=== PATIENT | female | born 1950 | race Asian ===

== ENCOUNTER 2017-05-23 09:03 | Emergency (ER) | payer MEDICARE, OTHER ==
[~2017-05-23] VITALS: Ht 157.5 cm; Wt 59.0 kg
[~2017-05-23 09:03] MED LIST: CANA1000R PR; FOLI-49 PO; FURO40TA4 PO; HYDR-3672 PO; LANS30CA PO; METO50TA16 PO; OMEP20CA16 PO; SEVE800T7 PO; SIMV20TA PO; SYN112 PO
[2017-05-23 09:05] VITALS: Ht 157.5 cm; Wt 59.0 kg
[2017-05-23] MEDS ORDERED: FEBU40TA PO (10:00)
[2017-05-23] MEDS ORDERED: FOLI1CAP PO (10:01)
[2017-05-23] MEDS ORDERED: ATOR20TA38 PO (10:01)
[2017-05-23] MEDS ORDERED: FER325 PO (10:01)
[2017-05-23] MEDS ORDERED: MONT10TA21 PO (10:02)
--- NOTE | 2017-05-23 11:19 | ERD ---
ER Documentation Chief Complaint Date/Time DATE: 05/23/17 TIME: 11:16 Chief Complaint nose bleed since 0600 HPI 66-year-old woman brought in by for bilateral epistaxis worse on the left compared to the right. She had no precipitating factors is seen she has had previous episodes. She has end-stage kidney disease and is due for hemodialysis tomorrow last dialysis was yesterday. She denies trauma, no fevers or chills, no headache or blurry vision, no dizziness, no loss of consciousness, no weakness in her arms or legs. ROS All systems reviewed and are negative except as per history of present illness. Medications Home Meds Active Scripts Folic Acid* (Folic Acid*) 1 Mg Tablet, 1 MG PO DAILY for 30 Days, TAB 1 Refill Prov:CONRAD BARSANYA Macias 07/29/16 Reported Medications Montelukast Sodium* (Singulair*) 10 Mg Tablet, 10 MG PO QHS, #30 TAB 05/23/17 Ferrous Sulfate* (Ferrous Sulfate*) 325 Mg Tabec, 325 MG PO TID, TAB 05/23/17 Atorvastatin Calcium* (Atorvastatin Calcium*) 20 Mg Tablet, 20 MG PO QHS, #30 TAB 05/23/17 Folic Acid/Vitamin B Comp W-C (Nephrocaps Capsule) 1 Mg Capsule, 1 MG PO DAILY, CAP 05/23/17 Febuxostat* (Uloric*) 40 Mg Tablet, 40 MG PO DAILY, TAB 05/23/17 Levothyroxine Sodium* (Levothyroxine Sodium*) 112 Mcg Tablet, 112 MCG PO BEFORE BREAKFAST, #30 TAB 08/03/16 Furosemide* (Furosemide*) 40 Mg Tablet, 40 MG PO DAILY, TAB 08/03/16 Omeprazole* (Omeprazole*) 20 Mg Capsule.dr, 20 MG PO AC BREAKFAST, #30 CAP 08/03/16 Discontinued Reported Medications Simvastatin* (Zocor*) 20 Mg Tablet, 20 MG PO QHS, #30 TAB 08/03/16 Metoprolol Succinate* (Toprol XL*) 50 Mg Tab.er.24h, 50 MG PO DAILY, #30 TAB 08/03/16 Hydralazine Hcl* (Hydralazine Hcl*) 50 Mg Tab, 50 MG PO Q8, #90 TAB HOLD SBP<110 08/03/16 Lansoprazole* (Lansoprazole*) 30 Mg Capsule.dr, 30 MG PO DAILY, CAP 08/03/16 Sevelamer Carbonate* (Renvela*) 800 Mg Tablet, 1.6 GM PO WITH MEALS, TAB 07/11/16 Discontinued Scripts Mesalamine* (Canasa*) 1,000 Mg Supp, 1000 MG FL HS for 30 Days, SUPP 1 Refill Prov:SUSAN BAR 07/29/16 Allergies Allergies: Coded Allergies: aspirin (Verified Allergy, Intermediate, 05/23/17) PMhx/Soc Gastritis, coronary artery disease, hypothyroidism, end-stage kidney disease hemodialysis dependent, hypertension History of Surgery: Yes (EGD and colonoscopy.) Anesthesia Reaction: No Hx Neurological Disorder: No Hx Respiratory Disorders: No Hx Cardiac Disorders: Yes (HTN) Hx Psychiatric Problems: No Hx Miscellaneous Medical Probl: Yes (BL subdural hematomas, choledocholithiasis , DIALYSIS ) Hx Alcohol Use: No Hx Substance Use: No Hx Tobacco Use: No Smoking Status: Never smoker FmHx Family History: No diabetes Physical Exam Vitals Vital Signs Date Time Temp Pulse Resp B/P Pulse Ox O2 Delivery O2 Flow Rate FiO2 05/23/17 09:05 97.5 60 18 164/73 100 Physical Exam GENERAL: Well-developed, well-nourished, well-hydrated, in no apparent distress , looks nontoxic in appearance HEENT: Moist mucous membranes, pink conjunctiva, no cervical spine tenderness or step-off deformities, no goiter, no jaundice or icterus, extraocular movements intact without pain. No submandibular induration, and no pharyngeal erythema. Positive epistaxis bilaterally worse on the left compared to the right. Nasal compressive dressing applied with improvement. NEURO: Alert and oriented 3, cranial nerves II through XII intact bilaterally, pupils equal round reactive to light, no focal deficits or facial asymmetry, sensation intact distally Strength 5/5 in upper and lower extremities bilaterally CARDIAC: Regular rate and rhythm, no murmurs rubs or gallops LUNGS: Clear bilaterally no wheezing crackles or stridor ABDOMEN: Soft nontender, no guarding, no rigidity, no rebound, no psoas sign no obturator sign. Normoactive bowel sounds SKIN: Warm and dry to touch, no abrasions, contusions, or hematomas, no lacerations, no ecchymosis, no target lesions, and without ulcers EXTREMITIES: No clubbing cyanosis or edema, calves are bilaterally symmetrical, no Homans sign, no popliteal cord sign. Distal pulses equal and bilateral PSYCH: Normal affect without agitation or irritability Results 24 hrs Current Medications Medications (Trade) Dose Ordered Sig/Jacque Route PRN Reason Start Time Stop Time Status Last Admin Dose Admin Clonidine (Catapres) 0.1 mg ONCE ONCE PO 05/23/17 10:30 05/23/17 10:31 DC 05/23/17 10:40 Procedures/MDM Despite compressive dressing patient had continued left naris epistaxis so intranasal balloon was inserted and insufflated with 6 cc of air. Epistaxis immediately resolved. For hypertension patient received clonidine 0.1 mg p.o. with improvement. Differential diagnoses considered, included but not limited to acute coronary syndrome, pulmonary embolism, aortic dissection, abdominal aortic aneurysm, sepsis, stroke, meningitis, encephalitis, pneumonia, appendicitis, cholecystitis , bowel obstruction, pyelonephritis, nephrolithiasis, cystitis, as well as metabolic, hematologic, and electrolyte abnormalities. As well as abscess, cellulitis, fractures, and dislocations. Patient feels much better at this time, and vital signs are normal, symptoms have improved. I did give strict instructions to return to the ED if symptoms continue or worsen, patient will otherwise follow-up with primary care physician. Patient understood instructions and agreed to plan. Disclaimer: Inadvertent spelling and grammatical errors are likely due to EHR/ dictation software use and do not reflect on the overall quality of patient care. Also, please note that the electronic time recorded on this note does not necessarily reflect the actual time of the patient encounter. Departure Diagnosis: Primary Impression: Hypertension Hypertension type: essential hypertension Qualified Code: I10 - Essential hypertension Additional Impressions: Epistaxis End stage renal disease on dialysis Condition: Good Patient Instructions: High Blood Pressure (Hypertension), Epistaxis (Adult) JONO DELANEY MD May 23, 2017 11:18
[2017-05-23 11:26] VITALS: BP 186/86; PULSE 74; RESP 18; TEMP 97.5
== END 2017-05-23 11:27 | disposition home or self-care (01) ==
LOC: E/R 09:03
DX: I12.0 Hypertensive chronic kidney disease with stage 5 chronic kidney disease or end stage renal disease (principal); N18.6 End stage renal disease; I25.10 Atherosclerotic heart disease of native coronary artery without angina pectoris; E03.9 Hypothyroidism, unspecified; Z99.2 Dependence on renal dialysis
CPT/HCPCS: 99283

== ENCOUNTER 2017-05-24 12:58 | Emergency (ER) | payer MEDICARE, OTHER ==
[~2017-05-24] VITALS: Wt 68.2 kg
[~2017-05-24 12:58] MED LIST changes: +ATOR20TA38 PO; -CANA1000R PR; +FEBU40TA PO; +FER325 PO; +FOLI1CAP PO; -HYDR-3672 PO; -LANS30CA PO; -METO50TA16 PO; +MONT10TA21 PO; -SEVE800T7 PO; -SIMV20TA PO
--- NOTE | 2017-05-24 13:53 | ERD ---
ER Documentation Chief Complaint Date/Time DATE: 05/24/17 TIME: 13:51 Chief Complaint hira rhinorockets bleeding through, seen here yest for same HPI This is a 66-year-old female with a history of end-stage renal disease on hemodialysis which she receives every Sunday and Sunday. Her manager winter is Jannie. The patient had just completed a full run of dialysis when she returned to the emergency department for reevaluation. Yesterday she had been seen and evaluated for bilateral anterior rhinorrhea. The patient had 2 nasal rocket placed. She indicates that the bleeding has resolved. She is requesting reevaluation and removal of the Rhino Rocket. She denies any dizziness. She has no chest pain or pressure that radiates to the neck arm back or jaw. She has had no fevers or shaking or chills. She denies the sensation of blood in the back of her throat. She denies any chest pain or pressure that radiates to the neck arm back or jaw. She denies any nausea or weakness. She denies any abdominal pain. ROS All systems reviewed and are negative except as per history of present illness. Medications Home Meds Active Scripts Folic Acid* (Folic Acid*) 1 Mg Tablet, 1 MG PO DAILY for 30 Days, TAB 1 Refill Prov:DIPIKASUSAN 07/29/16 Reported Medications Montelukast Sodium* (Singulair*) 10 Mg Tablet, 10 MG PO QHS, #30 TAB 05/23/17 Ferrous Sulfate* (Ferrous Sulfate*) 325 Mg Tabec, 325 MG PO TID, TAB 05/23/17 Atorvastatin Calcium* (Atorvastatin Calcium*) 20 Mg Tablet, 20 MG PO QHS, #30 TAB 05/23/17 Folic Acid/Vitamin B Comp W-C (Nephrocaps Capsule) 1 Mg Capsule, 1 MG PO DAILY, CAP 05/23/17 Febuxostat* (Uloric*) 40 Mg Tablet, 40 MG PO DAILY, TAB 05/23/17 Levothyroxine Sodium* (Levothyroxine Sodium*) 112 Mcg Tablet, 112 MCG PO BEFORE BREAKFAST, #30 TAB 08/03/16 Furosemide* (Furosemide*) 40 Mg Tablet, 40 MG PO DAILY, TAB 08/03/16 Omeprazole* (Omeprazole*) 20 Mg Capsule.dr, 20 MG PO AC BREAKFAST, #30 CAP 08/03/16 Discontinued Reported Medications Simvastatin* (Zocor*) 20 Mg Tablet, 20 MG PO QHS, #30 TAB 08/03/16 Metoprolol Succinate* (Toprol XL*) 50 Mg Tab.er.24h, 50 MG PO DAILY, #30 TAB 08/03/16 Hydralazine Hcl* (Hydralazine Hcl*) 50 Mg Tab, 50 MG PO Q8, #90 TAB HOLD SBP<110 08/03/16 Lansoprazole* (Lansoprazole*) 30 Mg Capsule.dr, 30 MG PO DAILY, CAP 08/03/16 Sevelamer Carbonate* (Renvela*) 800 Mg Tablet, 1.6 GM PO WITH MEALS, TAB 07/11/16 Discontinued Scripts Mesalamine* (Canasa*) 1,000 Mg Supp, 1000 MG OR HS for 30 Days, SUPP 1 Refill Prov:SUSAN BAR. 07/29/16 Allergies Allergies: Coded Allergies: aspirin (Verified Allergy, Intermediate, 05/23/17) PMhx/Soc History of Surgery: Yes (EGD and colonoscopy.) Anesthesia Reaction: No Hx Neurological Disorder: No Hx Respiratory Disorders: No Hx Cardiac Disorders: Yes (HTN) Hx Psychiatric Problems: No Hx Miscellaneous Medical Probl: Yes (BL subdural hematomas, choledocholithiasis , DIALYSIS ) Hx Alcohol Use: No Hx Substance Use: No Hx Tobacco Use: No Smoking Status: Never smoker Physical Exam Vitals Vital Signs Date Time Temp Pulse Resp B/P Pulse Ox O2 Delivery O2 Flow Rate FiO2 05/24/17 17:02 97.5 60 18 176/83 98 Room Air 05/24/17 13:00 97.5 59 20 181/78 97 Physical Exam Constitutional:Well-developed. Well-nourished. HEENT:Normocephalic. Atraumatic.Pupils were equal round reactive to light. Moist mucous membranes.No tonsillar exudates. No blood present within the posterior pharynx. Bilateral anterior Rhino Rocket in place Neck: No nuchal rigidity. No lymphadenopathy. No posterior cervical spine tenderness or step-offs. Respiratory: Not using accessory muscles of respiration.Lungs were clear to auscultation bilaterally. No rhonchi. No rales. No wheezing. Cardiovascular: Regular rate regular rhythm.No murmurs. No rubs were appreciated.S1, S2 normal. Distal pulses are palpable 2+ bilaterally. GI: Abdomen was soft. Nontender. Non Distended. No pulsatile abdominal masses or bruits. No rebound. No guarding. Bowel sounds were present and normal. Muscle skeletal: Full range of motion of both the upper and lower extremities bilaterally.Normal muscle tone.No assymetrical calf tenderness or swelling. Skin: No petechia, no purpura. No lesions on the palms or the soles of the feet. No maculopapular rash. Positive thrill and bruit of the left upper extremity. NEURO: Patient was alert, awake, orientated x3.No facial droop. Gait observed and normal with no ataxia.Speech had regular rate and rhythm. No focal neurological deficits. Results 24 hrs Current Medications Medications (Trade) Dose Ordered Sig/Jacque Route PRN Reason Start Time Stop Time Status Last Admin Dose Admin Oxymetazoline HCl (Afrin [place]) 2 spray ONCE ONCE NASAL 05/24/17 14:00 05/24/17 14:01 DC 05/24/17 14:12 Clonidine (Catapres) 0.2 mg ONCE ONCE PO 05/24/17 17:00 05/24/17 17:01 DC 05/24/17 16:48 Procedures/MDM This patient presented to the emergency department with bilateral Rhino Rocket requesting removal. I removed both the Rhino Rocket and when doing so the patient continued to have a moderate amount of bleeding localized to the anterior cut the box plastic cyst. There is no signs of posterior epistaxis and the patient's airway remained intact. Suctioning was performed at bedside to evacuate all clots present within the nasal nares. There was a language barrier as the appeared very concerned and stated he felt as though more suctioning was required. A interpreter and translator was then brought and explained to the patient that they will need to follow-up with ENT on that it was required I replaced the anterior Rhino Rocket. The patient was given Afrin nasal spray for vasoconstriction and to anterior Rhino Rocket replaced without any difficulty. Observation Note: Time: 4 hours Family Hx: No Hypertension Evaluation: Multiple exams showed improving symptoms and no evidence of continued epistaxis. At the time of discharge the patient's blood pressure had been elevated. There is no signs of endorgan damage to suggest hypertensive emergency or urgency. There is only minimal amount of bleeding I was not concerned for severe anemia at this time as the patient was hemodynamically stable. She did receive clonidine as she had not taken her antihypertensive medications while in the emergency department. The patient was discharged home in fair condition. They were instructed to return to the emergency department at any time if there was any worsening of their condition. The patient stated they would follow up with their PCP in the next 24-48 hours to initiate a suitable medication regimen under the care of their PCP as well as to allow their PCP to monitor any drug reactions. The patient was discharged home with prescriptions after they gave informed consent to the new medication. They were also fully informed by myself on the adverse effects and adverse drug interactions in order to provide adequate safeguards to prevent possible adverse reactions to medications. I also indicated to the patient the importance of following up with an ENT for definitive treatment. Departure Diagnosis: Primary Impression: Anterior epistaxis Condition: SAMMY Martinez May 24, 2017 13:52
[2017-05-24] MEDS ORDERED: OXYMETAZOLINE 0.05% 15 ML NAS SPRAY NASAL ONE (14:00)
[2017-05-24 17:02] VITALS: BP 176/83; PULSE 60; RESP 18; TEMP 97.5
== END 2017-05-24 17:02 | disposition home or self-care (01) ==
LOC: FTE 12:58
DX: R04.0 Epistaxis (principal); I12.0 Hypertensive chronic kidney disease with stage 5 chronic kidney disease or end stage renal disease; N18.6 End stage renal disease; Z99.2 Dependence on renal dialysis

== ENCOUNTER 2017-05-26 12:33 | Emergency (ER) | payer MEDICARE, OTHER ==
[~2017-05-26] VITALS: Ht 162.6 cm; Wt 56.0 kg
[2017-05-26 12:37] VITALS: Ht 162.6 cm; Wt 56.0 kg
--- NOTE | 2017-05-26 13:00 | ERD ---
ER Documentation Chief Complaint Date/Time DATE: 05/26/17 TIME: 12:58 Chief Complaint removal of bilateral nosal rhino rockets HPI 66-year-old female is here for removal of nasal packing from the bilateral nostrils. They were placed yesterday for epistaxis. No active bleeding. No other complaints. ROS All systems reviewed and are negative except as per history of present illness. Medications Home Meds Active Scripts Folic Acid* (Folic Acid*) 1 Mg Tablet, 1 MG PO DAILY for 30 Days, TAB 1 Refill Prov:SUSAN BAR 07/29/16 Reported Medications Montelukast Sodium* (Singulair*) 10 Mg Tablet, 10 MG PO QHS, #30 TAB 05/23/17 Ferrous Sulfate* (Ferrous Sulfate*) 325 Mg Tabec, 325 MG PO TID, TAB 05/23/17 Atorvastatin Calcium* (Atorvastatin Calcium*) 20 Mg Tablet, 20 MG PO QHS, #30 TAB 05/23/17 Folic Acid/Vitamin B Comp W-C (Nephrocaps Capsule) 1 Mg Capsule, 1 MG PO DAILY, CAP 05/23/17 Febuxostat* (Uloric*) 40 Mg Tablet, 40 MG PO DAILY, TAB 05/23/17 Levothyroxine Sodium* (Levothyroxine Sodium*) 112 Mcg Tablet, 112 MCG PO BEFORE BREAKFAST, #30 TAB 08/03/16 Furosemide* (Furosemide*) 40 Mg Tablet, 40 MG PO DAILY, TAB 08/03/16 Omeprazole* (Omeprazole*) 20 Mg Capsule.dr, 20 MG PO AC BREAKFAST, #30 CAP 08/03/16 Discontinued Reported Medications Simvastatin* (Zocor*) 20 Mg Tablet, 20 MG PO QHS, #30 TAB 08/03/16 Metoprolol Succinate* (Toprol XL*) 50 Mg Tab.er.24h, 50 MG PO DAILY, #30 TAB 08/03/16 Hydralazine Hcl* (Hydralazine Hcl*) 50 Mg Tab, 50 MG PO Q8, #90 TAB HOLD SBP<110 08/03/16 Lansoprazole* (Lansoprazole*) 30 Mg Capsule.dr, 30 MG PO DAILY, CAP 08/03/16 Sevelamer Carbonate* (Renvela*) 800 Mg Tablet, 1.6 GM PO WITH MEALS, TAB 07/11/16 Discontinued Scripts Mesalamine* (Canasa*) 1,000 Mg Supp, 1000 MG [place] HS for 30 Days, SUPP 1 Refill Prov:SUSAN BAR 07/29/16 Allergies Allergies: Coded Allergies: aspirin (Verified Allergy, Intermediate, 05/23/17) PMhx/Soc History of Surgery: Yes (EGD and colonoscopy.) Anesthesia Reaction: No Hx Neurological Disorder: No Hx Respiratory Disorders: No Hx Cardiac Disorders: Yes (HTN) Hx Psychiatric Problems: No Hx Miscellaneous Medical Probl: Yes (BL subdural hematomas, choledocholithiasis , DIALYSIS ) Hx Alcohol Use: No Hx Substance Use: No Hx Tobacco Use: No FmHx Family History: No diabetes Physical Exam Vitals Vital Signs Date Time Temp Pulse Resp B/P Pulse Ox O2 Delivery O2 Flow Rate FiO2 05/26/17 12:37 98.4 61 18 200/74 100 Physical Exam Const: [] Head: Atraumatic Eyes: Normal Conjunctiva ENT: Normal External Ears. rhinorockets in bilateral nostrils, Neck: Full range of motion..~ No meningismus. Resp: Clear to auscultation bilaterally Cardio: Regular rate and rhythm, no murmurs Procedures/MDM Bilateral Rhino Rocket were removed without complication. No active bleeding. Recommended this patient follow up with her primary care doctor within 48 hours or return to the emergency room for any worsening of symptoms. However this time I do believe there is suitable for outpatient management. I answered all their questions and they agreed with the plan and were discharged home. Departure Diagnosis: Primary Impression: Encounter for removal of nasal packing Condition: Stable Patient Instructions: Epistaxis (Adult) Additional Instructions: Call your primary care doctor TOMORROW for an appointment during the next 1-2 days.See the doctor sooner or return here if your condition worsens before your appointment time. MILEY THOMPSON PA-C May 26, 2017 13:00
[2017-05-26 13:33] VITALS: BP 156/73; PULSE 77; RESP 18
== END 2017-05-26 13:33 | disposition home or self-care (01) ==
LOC: FTE 12:33
DX: Z48.00 Encounter for change or removal of nonsurgical wound dressing (principal); I10 Essential (primary) hypertension; Z99.2 Dependence on renal dialysis
CPT/HCPCS: 99282